=== PATIENT | female | born 1985 | race African-American/Black ===

== ENCOUNTER 2016-10-24 11:05 | Emergency (ER) | payer OTHER ==
[~2016-10-24] VITALS: Ht 162.6 cm; Wt 48.0 kg
[2016-10-24 13:40] VITALS: BP 117/67
== END 2016-10-24 13:41 | disposition home or self-care (01) ==
LOC: ER 11:36
DX: Z48.02 Encounter for removal of sutures (principal); Z98.890 Other specified postprocedural states
CPT/HCPCS: 99283